=== PATIENT | male | born 1955 | race Caucasian/White ===

== ENCOUNTER 2016-11-20 15:19 | Outpatient (CLI) | payer BC ==
--- NOTE | 2016-11-20 16:08 | Diagnostic Imaging Report ---
[facility] [id number] [facility] [place], [place]. [address] Report Submission Date: Nov 20, 2016 4:03:02 PM [employer] Patient Study Name: JESUS PEREZ Date: Nov 20, 2016 3:35:31 PM [employer] Modality Type: CR Gender: M Description: CHEST : 59 Institution: [facility] Physician: JOSÉ BENEDICT 3 views of the chest History: Deep top COUGH, SWEATING, 2-3 DAYS. SMOKER FOR 10+ YEARS (Hx) / OXYGEN DEFICIT Findings: No comparison studies Heart is normal in size Emphysema Extensive air space opacities are noted in the right mid and lower lung mariee Patchy infiltrates/ atelectasis are seen in the lower lobe and retrocardiac region Degenerative changes thoracic spine Impression: 1. Extensive infiltrates right mid and lower lung mariee. Tiny right pleural effusion is possible. 2. Patchy infiltrate/atelectasis left lower lobe. Recommend followup to resolution Electronically signed on Nov 20, 2016 4:03:02 PM [employer] by: Yvette SERVIN
== END 2016-11-20 15:20 ==
LOC: RAD 15:19
PROVIDERS: ATTEND Physician Assistant
DX: R09.02 Hypoxemia (principal)
CPT/HCPCS: 71020

== ENCOUNTER 2017-12-17 14:42 | Outpatient (CLI) | payer BC ==
[2017-12-17 15:20] LABS: eGFR (African) > 60; eGFR (Non-African) > 60
== END 2017-12-17 14:50 ==
LOC: LAB 14:42
PROVIDERS: ATTEND Physician Assistant
DX: Z00.00 Encounter for general adult medical examination without abnormal findings (principal); Z13.6 Encounter for screening for cardiovascular disorders
CPT/HCPCS: 36415; 80053; 80061